=== PATIENT | female | born 1950 | race Caucasian/White ===

== ENCOUNTER 2018-01-30 15:49 | Inpatient (IN) | payer OTHER ==
[~2018-01-30] VITALS: Ht 161.5 cm; Wt 75.0 kg
--- NOTE | ~2018-01-30 | PR ---
[place], [place] PROGRESS NOTE NAME: NAVEEN GUTIERRES UNIT #: [id number] ROOM: 311 DOCTOR: TRISTIAN LOPEZ MD BIRTHDATE: [birth year] DOS: 02/03/2018 CHIEF COMPLAINT: "I am feeling a little better, I do not feel like I am part of the anymore." SUMMARY OF THE VISIT: The patient was interviewed as she lay on her bed. As I entered and approached her, she sat up and engaged readily in conversation. She reports what brought her into the hospital was that she was beginning to feel as if she was becoming an actual part of the . She states that these feelings have lessened in frequency and intensity and overall she is feeling like she is improved some from her admission. MENTAL STATUS: She is alert and oriented. Mood does still seem to be somewhat depressed. She is mainly psychotic and is questioning the validity of some of her thoughts. She tolerates her current medicines well and I see no sedation, extrapyramidal symptoms, tardive dyskinesia. Memory for the most part is intact. PLAN: Given the fact that she is already on 60 mg of Paxil, I will discontinue the Remeron due to ineffectiveness. Notes indicate that she was on 40 of Paxil and 15 of Remeron upon admission. Given the depressive symptomatology and the response to the increase in the Paxil, I believe we can safely discontinue Remeron. I will further increase Trilafon to 8 mg 3 times a day to further break the psychotic symptoms. Routine screening examinations upon admission show her to have a vitamin B12 level that is grossly low at 146. She has already been given a vitamin B12 injection. Her folate level also was low at 2.47 and she has been put on a B complex with C. We will continue to engage in individual and logan milieu activity, planning then to discharge to the least restrictive environment when stable. TRISTIAN LOPEZ MD CM:PNTRANS [id number] TRISTIAN LOPEZ MD 02/03/18 1011 interface
--- NOTE | ~2018-01-30 | PR ---
[place], [place] PROGRESS NOTE NAME: [id number] #: [id number] ROOM: 311 DOCTOR: BETSEY PALOMO MD BIRTHDATE: [birth year] DOS: 02/01/2018 SUBJECTIVE: The patient seen and I spoke with the staff. Per staff, the patient is withdrawn. No behavioral problems or issues, taken her medication regularly. The patient was pleasant and cooperative. She was in her bed. She said that she is not feeling that she is a part of the room anymore. She took her medication and did not have any side effect from the medication. MENTAL STATUS EXAMINATION: The patient was pleasant and cooperative. She described her mood as "okay." Affect, mood congruent. Thought process goal directed. No flight of ideas, loosening of association. She denied auditory or visual hallucinations. She still had some delusions, but much better than before. She denies any suicidal ideation, intent or plan. She also denied any homicidal ideation, intent or plan. PLAN: 1. Continue current medication and care. 2. Continue redirection. 3. Supportive care. BETSEY PALOMO MD CM:PNTRANS [id number] BETSEY PALOMO MD 02/01/18 4638 interface
--- NOTE | ~2018-01-30 | PR ---
[place], [place] PROGRESS NOTE NAME: NAVEEN GUTIERRES UNIT #: [id number] ROOM: 311 DOCTOR: TRISTIAN LOPEZ MD BIRTHDATE: [birth year] DOS: 02/04/2018 CHIEF COMPLAINT: "I think I am feeling a little better, thank you." SUMMARY OF THE VISIT: The patient was interviewed in the dining area. She was sitting watching television after having already eaten her breakfast. She engaged readily in conversation. She was engaging, conversation flowed pretty normally. She did report that she is feeling better compared to on admission and convincingly denied any medication side effects. No sedation, somnolence, extrapyramidal symptoms or tardive dyskinesia were noted. MENTAL STATUS: She remains alert and oriented. Mood is strongly trending towards euthymia. Affect is much more appropriate. There is no christiano or hypomania. There are no overt auditory or visual hallucinations, delusions or paranoia. Memory for the most part is intact. PLAN: I will maintain her current psychotropic regimen as she is achieving benefit without side effect. We will continue to support and monitor and engage in individual and logan milieu activity, returning home when stable. TRISTIAN LOPEZ MD CM:PNTRANS [id number] TRISTIAN LOPEZ MD 02/04/18 1005 interface
--- NOTE | ~2018-01-30 | DS ---
[place], [place] DISCHARGE SUMMARY NAME: [id number] UN[facility] #: [id number] ROOM: 311 DOCTOR: TRISTIAN LOPEZ MD BIRTHDATE: [birth year] DOS: 02/05/2018 CHIEF COMPLAINT: "I felt like I was becoming part of the room." HISTORY OF PRESENT ILLNESS: This is a 67-year-old white female with a long history of schizophrenia, who was brought into the Emergency Room at [facility] due to increased delusions and paranoia. Per the patient at that time, she believed that she was actually becoming a physical part of the room in which she was living at. She also believed that there were people who were watching her and following her. She states that despite being compliant with her medications, she has had an increase in the psychotic symptoms. The patient reports of the two medicines that she is taking, the Trilafon and the Rexulti, she believes that the Trilafon has been effective and does not understand what the Rexulti is doing it all. The patient was admitted to rule out any organic factors, to stabilize on medication, returning to the least restrictive environment when psychiatrically stable. PAST MEDICAL HISTORY: Remarkable for hypertension, COPD and hyperlipidemia. SUMMARY OF HOSPITAL COURSE: The patient was admitted to the hospital by Dr. Kelly, who felt that she no longer required the Rexulti and instead increased her Trilafon from 4 mg twice a day to 8 mg twice a day. The patient did tolerate this well, but continued to experience ongoing paranoia and delusions. He increased her Paxil from 40 mg a day to 60 mg a day, hoping to increase the effectiveness of the drug. When I had an opportunity to interview her, the patient continued to complain of both depression and paranoia and still felt that she was part of the physical room in which she was staying at. The patient convincingly denied any medication side effects at that time. I ended up increasing her Trilafon to 8 mg 3 times a day and discontinuing her Remeron, so that it would not interfere with the Paxil in anyway. After several days of this combination, the patient noted an alleviation of her symptomatology. She was sleeping well, eating well, interacting with other patients and staff well. She denied any suicidal thoughts, homicidal thoughts, any tardive dyskinesia, extrapyramidal symptoms, sedation or somnolence. The patient voiced a readiness and a willingness to return home at this time and was discharged with the hope to follow up at the [facility] as well. MENTAL STATUS AT DISCHARGE: The patient is alert and oriented. Mood does seem to be strongly trending towards euthymia, affect is much more appropriate. There is no christiano, hypomania or psychosis. Memory is fully intact. DIAGNOSIS: Schizoaffective disorder. PLAN: The patient is to return home. Her prescriptions have been e scribed to [facility] in [place]. She will have followup in the community and follow up at the [facility]: The patient psychiatrically was stable, medically was stable and psychosocially was ready to return home to her boyfriend who was anxious for her return home. She was discharged then on February 05 in stable condition. [place], [place] DISCHARGE SUMMARY NAME: NAVEEN GUTIERRES UNIT #: [id number] ROOM: [facility] DOCTOR: TRISTIAN LOPEZ MD BIRTHDATE: [birth year] TRISTIAN LOPEZ MD CM:AMARJIT TRISTIAN LOPEZ MD 02/05/18 0953 interface
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
--- NOTE | ~2018-01-30 | EKG ---
[place], [place] ELECTROCARDIOGRAM REPORT NAME: NAVEEN GUTIERRES UNIT #: [id number] ROOM: 311 DOCTOR: LANETTE LINTON,MARCE BIRTHDATE: [birth year] DOS: 02/01/2018 TIME: 1606 hours IMPRESSION: 1. Sinus rhythm. 2. Supraventricular ectopy. 3. Nonspecific ST-T changes. 4. Normal QT interval. MARCE GAMA MD CM:EKGRPT:ELECTROCARDIOGRAM REPORT 1151 1222 MARCE GAMA MD
--- NOTE | ~2018-01-30 | PR ---
[place], [place] PROGRESS NOTE NAME: [facility]ERRES [id number] UNIT #: [id number] ROOM: 311 DOCTOR: BETSEY PALOMO MD BIRTHDATE: [birth year] DOS: 02/02/2018 SUBJECTIVE: The patient seen and spoke with the staff. Per staff, her all cardiac tests were within normal limit, but the patient remains to be very isolated, stays in her room most of the time and still anxious. The patient was pleasant and cooperative. She was in her bed. She said that she is happy to know that all the tests are within normal limit and she do not have any problem with her heart. She took her medication and did not have any side effect. She said that she is feeling better, but still had some anxiety. MENTAL STATUS EXAMINATION: The patient was pleasant and cooperative. Described her mood as "okay". Affect, constricted. Thought process goal directed. No flight of ideas, loosening of association. She denied any auditory or visual hallucination. No delusion or paranoia noted. She denied suicidal ideation, intent or plan. She also denied any homicidal ideation, intent or plan. PLAN: 1. Increase Paxil to 60 mg in the morning. 2. Continue other medication. 3. Continue redirection. 4. Supportive care. BETSEY PALOMO MD CM:PNTRANS 39 [phone] BETSEY PALOMO MD 02/02/182143 interface
[~2018-01-30 15:49] MED LIST: ANAPROX DS550 MG PO; DARVOCET N 1001 TAB PO; DAYPRO600 M1 PO
[2018-01-30 15:56] VITALS: BP 155/107
[2018-01-30 16:19] LABS: BASO % 0.1 % (0.0-1.0); EOS % 0.1 % (1.0-4.0); HEMATOCRIT 37.2 % (37.0-47.0); HEMOGLOBIN 11.9 g/dl (12.0-16.0); LYMPH # 1.5 10*3/uL (1.3-4.4); LYMPH % 10.9 % (27.0-41.0); MEAN CELL VOLUME 93.9 fl (81.0-99.0); MEAN CORPUSCULAR HGB 30.1 pg (27.0-31.0); MEAN PLATELET VOLUME 9.9 fl (9.6-12.3); MONO # 1.2 10*3/uL (0.1-1.0); MONO % 8.6 % (3.0-9.0); NEUT # 10.8 10*3/uL (2.3-7.9); NEUT % 79.6 % (47.0-73.0); PLATELET COUNT AUTOMATED 336 10*3/uL (130-400); RED BLOOD COUNT 3.96 10*6/uL (4.10-5.10); RED CELL DISTRI WIDTH 16.4 % (0-14.5); WHITE BLOOD COUNT 13.5 10*3/uL (4.8-10.8)
[2018-01-30] MEDS ORDERED: ASPIRIN ADULT L81 M2 PO (16:24)
[2018-01-30] MEDS ORDERED: LISINOPRIL2.5 MG PO (16:26)
[2018-01-30] MEDS ORDERED: CARVEDILOL6.25 MG PO (16:27)
[2018-01-30] MEDS ORDERED: OMEPRAZOLE D/R20 MG PO (16:27)
[2018-01-30] MEDS ORDERED: ATORVASTATIN CA80 M1 PO (16:28)
[2018-01-30] MEDS ORDERED: CLOPIDOGREL75 MG PO (16:28)
[2018-01-30] MEDS ORDERED: MYRBETRIQ50 M1 PO (16:29)
[2018-01-30] MEDS ORDERED: PERPHENAZINE4 M1 PO (16:31)
[2018-01-30 16:32] LABS: ALBUMIN 3.2 gm/dl (3.1-4.5); ALKALINE PHOSPHATASE 96 U/L (45-117); BUN 13 mg/dl (7-24); CHLORIDE 95 mmol/L (98-107); CREATININE 0.56 mg/dL (0.55-1.02); POTASSIUM 3.7 mmol/L (3.5-5.1); SGOT/AST 9 IU/L (3-35); SGPT/ALT 29 U/L (12-78); SODIUM 139 mmol/L (136-145); TOTAL PROTEIN 6.5 gm/dL (6.4-8.2)
[2018-01-30] MEDS ORDERED: PERPHENAZINE8 MG PO (16:32)
[2018-01-30 16:34] LABS: ETHYL ALCOHOL < 3.0 mg/dl (<3)
[2018-01-30] MEDS ORDERED: ALPRAZOLAM0.25 M2 PO (16:35)
[2018-01-30] MEDS ORDERED: PROVENTIL HFA6.7 GM INH (16:55)
[2018-01-30] MEDS ORDERED: VITAMIN D5000 UNI1 PO (16:59)
[2018-01-30] MEDS ORDERED: REXULTI3 MG PO (16:59)
[2018-01-30] MEDS ORDERED: DUONEB 3 MG/3 ML3 M1 INH (17:05)
[2018-01-30 17:25] VITALS: BP 127/65
[2018-01-30] MEDS ORDERED: MIRTAZAPINE15 M2 PO (17:30)
[2018-01-30 17:52] LABS: BILIRUBIN NEGATIVE (NEGATIVE); BLOOD NEGATIVE (NEGATIVE); CLARITY SL CLOUDY (CLEAR); COLOR YELLOW (YELLOW); GLUCOSE NEGATIVE (NEGATIVE); KETONE NEGATIVE (NEGATIVE); LEUKO ESTERASE 1+ (NEGATIVE); NITRITE NEGATIVE (NEGATIVE); UROBILINOGEN 0.2 E.U./dl (0.2-1.0)
[2018-01-30 18:00] LABS: BACTERIA 1+; EPITHELIAL CELLS TNTC; RBC 0-2 rbc/hpf (0-2)
[2018-01-30 18:01] LABS: URINE AMPHETAMINES < 1000 (1000ng/ml); URINE BARBITURATES < 200 (200ng/ml); URINE BENZODIAZEPINES > 200 (200ng/ml); URINE CANNABINOIDS (THC) < 50 (50ng/ml); URINE COCAINE < 300 (300ng/ml); URINE METHADONE < 300 (300ng/ml); URINE OPIATES < 300 (300ng/ml)
[2018-01-30 18:02] LABS: URINE PHENCYCLIDINE < 25 (25ng/ml)
[2018-01-30 19:28] VITALS: BP 128/76
[2018-01-30] MEDS ORDERED: PAXIL40 M1 PO (20:38)
[2018-01-30 20:44] VITALS: BP 118/60
[2018-01-31 07:09] LABS: BUN 15 mg/dl (7-24); CHLORIDE 95 mmol/L (98-107); CHOLESTEROL 145 mg/dL (<200); CREATININE 0.49 mg/dL (0.55-1.02); POTASSIUM 3.4 mmol/L (3.5-5.1); SODIUM 142 mmol/L (136-145); TRIGLYCERIDES 127 mg/dl (<150); VLDL CHOLESTEROL 25 mg/dL (6-40)
[2018-01-31 07:21] LABS: HDL CHOLESTEROL 67 mg/dl (40-60); LDL CHOLESTEROL 53 mg/dL (9-159)
[2018-01-31 08:52] LABS: VITAMIN D, 25-HYDROXY 36.4 ng/mL (30-100)
[2018-01-31 09:24] VITALS: BP 126/77
[2018-01-31 20:07] VITALS: BP 114/64
[2018-02-01 08:01] VITALS: BP 144/64
[2018-02-01 20:00] VITALS: BP 136/70
[2018-02-02 08:02] VITALS: BP 138/64
[2018-02-02 20:09] VITALS: BP 129/64
[2018-02-03 08:18] VITALS: BP 131/72
[2018-02-03 20:08] VITALS: BP 106/62
[2018-02-04 07:26] LABS: BASO % 0.3 % (0.0-1.0); EOS # 0.1 10*3/uL (0.0-0.4); EOS % 1.3 % (1.0-4.0); HEMATOCRIT 32.7 % (37.0-47.0); HEMOGLOBIN 10.6 g/dl (12.0-16.0); LYMPH # 1.3 10*3/uL (1.3-4.4); LYMPH % 18.4 % (27.0-41.0); MEAN CELL VOLUME 94.2 fl (81.0-99.0); MEAN CORPUSCULAR HGB 30.5 pg (27.0-31.0); MEAN CORPUSCULAR HGB CONC 32.4 g/dl (33.0-37.0); MEAN PLATELET VOLUME 10.4 fl (9.6-12.3); NEUT # 4.5 10*3/uL (2.3-7.9); NEUT % 64.6 % (47.0-73.0); PLATELET COUNT AUTOMATED 210 10*3/uL (130-400); RED BLOOD COUNT 3.47 10*6/uL (4.10-5.10); RED CELL DISTRI WIDTH 16.1 % (0-14.5); WHITE BLOOD COUNT 6.9 10*3/uL (4.8-10.8)
[2018-02-04 07:56] LABS: BUN 14 mg/dl (7-24); CHLORIDE 101 mmol/L (98-107); CREATININE 0.57 mg/dL (0.55-1.02); POTASSIUM 3.5 mmol/L (3.5-5.1); SODIUM 139 mmol/L (136-145)
[2018-02-04 08:08] VITALS: BP 122/74
[2018-02-04 20:05] VITALS: BP 110/60
[2018-02-05 07:59] VITALS: BP 125/73
[2018-02-05] MEDS ORDERED: PAROXETINE HCL20 MG PO (09:34)
[2018-02-05] MEDS ORDERED: PERPHENAZINE4 M1 PO (09:34)
== END 2018-02-05 16:20 | disposition home or self-care (01) | DRG 885 ==
LOC: ED 15:49 → 3N 19:50
PROVIDERS: Nurse Practitioner Family; Psychiatry & Neurology Psychiatry; Registered Nurse
DX: F25.9 Schizoaffective disorder, unspecified (principal); E87.8 Other disorders of electrolyte and fluid balance, not elsewhere classified; Z99.81 Dependence on supplemental oxygen; N39.0 Urinary tract infection, site not specified; J44.9 Chronic obstructive pulmonary disease, unspecified; E78.5 Hyperlipidemia, unspecified; I10 Essential (primary) hypertension; F41.9 Anxiety disorder, unspecified; I25.10 Atherosclerotic heart disease of native coronary artery without angina pectoris; F32.9 Major depressive disorder, single episode, unspecified; F17.200 Nicotine dependence, unspecified, uncomplicated; D64.9 Anemia, unspecified; E87.6 Hypokalemia; R73.03 Prediabetes; E53.8 Deficiency of other specified B group vitamins; K21.9 Gastro-esophageal reflux disease without esophagitis; R07.9 Chest pain, unspecified; Z71.6 Tobacco abuse counseling; Z88.8 Allergy status to other drugs, medicaments and biological substances; Z79.82 Long term (current) use of aspirin; Z79.899 Other long term (current) drug therapy; I25.2 Old myocardial infarction; Z95.5 Presence of coronary angioplasty implant and graft; Z82.49 Family history of ischemic heart disease and other diseases of the circulatory system; Z88.6 Allergy status to analgesic agent; Z88.1 Allergy status to other antibiotic agents

== ENCOUNTER 2019-09-13 19:52 | Emergency (ER) | payer OTHER ==
[~2019-09-13] VITALS: Ht 162.5 cm; Wt 77.1 kg
[~2019-09-13 19:52] MED LIST changes: +ALPRAZOLAM0.25 M2 PO; +ASPIRIN ADULT L81 M2 PO; +ATORVASTATIN CA80 M1 PO; +CARVEDILOL6.25 MG PO; +CLOPIDOGREL75 MG PO; +DUONEB 3 MG/3 ML3 M1 INH; +LISINOPRIL2.5 MG PO; +MIRTAZAPINE15 M2 PO; +MYRBETRIQ50 M1 PO; +OMEPRAZOLE D/R20 MG PO; +PAROXETINE HCL20 MG PO; +PAXIL40 M1 PO; +PERPHENAZINE4 M1 PO; +PERPHENAZINE8 MG PO; +PROVENTIL HFA6.7 GM INH; +REXULTI3 MG PO; +VITAMIN D5000 UNI1 PO
[2019-09-13 20:30] LABS: BASO % 0.3 % (0.0-1.0); EOS # 0.1 10*3/uL (0.0-0.4); EOS % 1.9 % (1.0-4.0); HEMATOCRIT 30.6 % (37.0-47.0); HEMOGLOBIN 9.7 g/dl (12.0-16.0); LYMPH # 1.6 10*3/uL (1.3-4.4); LYMPH % 22.6 % (27.0-41.0); MEAN CELL VOLUME 87.7 fl (81.0-99.0); MEAN CORPUSCULAR HGB 27.8 pg (27.0-31.0); MEAN CORPUSCULAR HGB CONC 31.7 g/dl (33.0-37.0); MEAN PLATELET VOLUME 9.8 fl (9.6-12.3); MONO % 13.1 % (3.0-9.0); NEUT # 4.5 10*3/uL (2.3-7.9); PLATELET COUNT AUTOMATED 221 10*3/uL (130-400); RED BLOOD COUNT 3.49 10*6/uL (4.10-5.10); RED CELL DISTRI WIDTH 12.8 % (0-14.5); WHITE BLOOD COUNT 7.3 10*3/uL (4.8-10.8)
[2019-09-13 20:43] LABS: ALBUMIN 3.1 gm/dl (3.1-4.5); ALKALINE PHOSPHATASE 124 U/L (45-117); BUN 4 mg/dl (7-24); CHLORIDE 99 mmol/L (98-107); CREATININE 0.87 mg/dL (0.55-1.02); POTASSIUM 3.4 mmol/L (3.5-5.1); SGOT/AST 6 IU/L (3-35); SGPT/ALT 13 U/L (12-78); SODIUM 139 mmol/L (136-145); TOTAL PROTEIN 6.2 gm/dL (6.4-8.2)
[2019-09-13 20:44] LABS: ACETAMINOPHEN (TYLENOL) < 5.0 ug/ml (10-30); ETHYL ALCOHOL < 3.0 mg/dl (<3)
[2019-09-13 21:38] LABS: BILIRUBIN NEGATIVE (NEGATIVE); BLOOD NEGATIVE (NEGATIVE); CLARITY CLEAR (CLEAR); COLOR YELLOW (YELLOW); GLUCOSE NEGATIVE (NEGATIVE); KETONE NEGATIVE (NEGATIVE); LEUKO ESTERASE NEGATIVE (NEGATIVE); NITRITE NEGATIVE (NEGATIVE); SPECIFIC GRAVITY <= 1.005 (1.005-1.030); UROBILINOGEN 0.2 E.U./dl (0.2-1.0)
[2019-09-13 21:44] LABS: BACTERIA TRACE; EPITHELIAL CELLS 51-100; WBC 0-2 wbc/hpf (0-5)
[2019-09-13] MEDS ORDERED: REXULTI2 MG PO (21:44)
[2019-09-13] MEDS ORDERED: DOXEPIN HCL10 MG PO (21:45)
[2019-09-13 21:46] LABS: URINE AMPHETAMINES < 1000 (1000ng/ml); URINE BARBITURATES < 200 (200ng/ml); URINE BENZODIAZEPINES < 200 (200ng/ml); URINE CANNABINOIDS (THC) < 50 (50ng/ml); URINE COCAINE < 300 (300ng/ml); URINE METHADONE < 300 (300ng/ml); URINE OPIATES < 300 (300ng/ml)
[2019-09-13] MEDS ORDERED: PROBIOTIC1 EAC1 PO (21:46)
[2019-09-13 21:53] LABS: URINE PHENCYCLIDINE < 25 (25ng/ml)
[2019-09-16] MEDS ORDERED: PAROXETINE40 MG PO (15:08)
== END 2019-09-13 23:50 | disposition short-term general hospital (02) ==
LOC: ED 19:52
PROVIDERS: Emergency Medicine
DX: T50.902A Poisoning by unspecified drugs, medicaments and biological substances, intentional self-harm, initial encounter (principal); R45.851 Suicidal ideations; F20.9 Schizophrenia, unspecified; J44.9 Chronic obstructive pulmonary disease, unspecified; I25.10 Atherosclerotic heart disease of native coronary artery without angina pectoris; K21.9 Gastro-esophageal reflux disease without esophagitis; I25.2 Old myocardial infarction; E78.5 Hyperlipidemia, unspecified; F17.200 Nicotine dependence, unspecified, uncomplicated; Z88.6 Allergy status to analgesic agent; Z88.8 Allergy status to other drugs, medicaments and biological substances; Z88.1 Allergy status to other antibiotic agents; Z88.2 Allergy status to sulfonamides; Z79.899 Other long term (current) drug therapy; Z79.82 Long term (current) use of aspirin; Y92.89 Other specified places as the place of occurrence of the external cause

== ENCOUNTER 2019-09-16 15:08 | Inpatient (IN) | payer OTHER ==
[~2019-09-16] VITALS: Ht 162.5 cm; Wt 85.6 kg
[~2019-09-16 15:08] MED LIST changes: +DOXEPIN HCL10 MG PO; +PAROXETINE40 MG PO; +PROBIOTIC1 EAC1 PO; +REXULTI2 MG PO
[2019-09-16] MEDS ORDERED: ZESTRIL2.5 MG PO (15:09)
[2019-09-16] MEDS ORDERED: PERPHENAZINE8 MG PO (15:10)
[2019-09-16] MEDS ORDERED: ANORO ELLIPTA1 EACH INH (15:11)
--- NOTE | 2019-09-18 19:00 | NUR ---
NAVEEN GUTIERRES a 69 year old F admitted via wheel chair from the OTHER as a voluntary admission. Arrived on unit at 1900. ALLERGIES: NORCO,SYMBICORT,INVEGA,CEFDINIR,BREO ELLIPTA,BACTRIM. Vital signs are: 98.8-79-17 132/69. The client signed the following forms with stated understanding: Authorization For The Release of Medical Information, Clothing List, Consent to Voluntary Admission and Hospitalization, Consent and Release Forms/Receipt of Rights, Acknowledgement of Advance Directive Information, Behavioral Health Consent Form, and Informed Consent of Medications. Admitted under the services of Dr. JOHN LINTON,[facility]. A search was conducted and hazardous articles were removed. Client was oriented to the unit. Patient refused skin assessment at this time. VALENCIA DIANA A
--- NOTE | 2019-09-18 19:35 | NUR ---
KUMAR CROSS CALLED TO REVIEW SUICIDE RISK SCORE AND FOR CLARIFICATION FOR LEVEL OF OBSERVATION
--- NOTE | 2019-09-18 19:40 | NUR ---
OUTSIDE MACHINIST APPRENTICE, DEIRDRE TOVAR NOTIFIED ABOUT ADMISSION. PATIENT SUICIDE RISK SCORE ELEVATED AND WAITING CALL BACK FROM KUMAR CROSS TO CLARIFY LEVEL OF OBSERVATION. OUTSIDE MACHINIST APPRENTICE AWARE
[2019-09-18 19:46] VITALS: BP 132/69
--- NOTE | 2019-09-18 19:50 | NUR ---
DR CHOWDARY UPADATED ABOUT PATIENT ADMISSION ON PHONE NUMBER [phone]. PATIENT UNDER DR BARRERA FOR MEDICAL MANAGEMENT
[2019-09-18 19:53] VITALS: BP 132/69
--- NOTE | 2019-09-18 20:05 | NUR ---
NURSING PRODUCTION DEPARTMENT SUPERVISOR UPDATED ABOUT PATIENT ADMISSION
[2019-09-18 20:28] VITALS: BP 132/59
--- NOTE | 2019-09-18 20:52 | NUR ---
KUMAR CROSS RETURNED CALL TO MAKE PATIENT LEVEL OF OBSERVATION 1:1 UNTIL FURTHER EVALUATION IN THE AM. NURSING CORONER FORENSIC TECHNICIAN TO BE UPDATED
--- NOTE | 2019-09-18 21:06 | NUR ---
NURSING PATIENT SERVICE REPRESENTATIVE UPDATED ABOUT LEVEL OF OBSERVATION AND PATIENT ROOM CHANGE
--- NOTE | 2019-09-18 22:05 | NUR ---
Dr. Hope here and saw patient. Awaiting new orders.
--- NOTE | 2019-09-19 00:35 | NUR ---
24 HR chart check completed.
[2019-09-19 07:10] VITALS: BP 129/62
[2019-09-19 07:44] LABS: BASO % 0.3 % (0.0-1.0); EOS # 0.2 10*3/uL (0.0-0.4); EOS % 3.2 % (1.0-4.0); HEMATOCRIT 31.5 % (37.0-47.0); HEMOGLOBIN 9.9 g/dl (12.0-16.0); LYMPH # 1.3 10*3/uL (1.3-4.4); LYMPH % 19.2 % (27.0-41.0); MEAN CELL VOLUME 87.5 fl (81.0-99.0); MEAN CORPUSCULAR HGB 27.5 pg (27.0-31.0); MEAN CORPUSCULAR HGB CONC 31.4 g/dl (33.0-37.0); MEAN PLATELET VOLUME 11.1 fl (9.6-12.3); MONO # 0.9 10*3/uL (0.1-1.0); MONO % 13.3 % (3.0-9.0); NEUT # 4.4 10*3/uL (2.3-7.9); NEUT % 63.7 % (47.0-73.0); PLATELET COUNT AUTOMATED 252 10*3/uL (130-400); RED CELL DISTRI WIDTH 13.2 % (0-14.5); WHITE BLOOD COUNT 6.8 10*3/uL (4.8-10.8)
[2019-09-19 08:16] LABS: ALBUMIN 3.2 gm/dl (3.1-4.5); BUN 12 mg/dl (7-24); CHLORIDE 101 mmol/L (98-107); CHOLESTEROL 146 mg/dL (<200); POTASSIUM 3.8 mmol/L (3.5-5.1); SGOT/AST 11 IU/L (3-35); SGPT/ALT 18 U/L (12-78); SODIUM 139 mmol/L (136-145); TOTAL PROTEIN 6.6 gm/dL (6.4-8.2); TRIGLYCERIDES 77 mg/dl (<150); VLDL CHOLESTEROL 15 mg/dL (6-40)
[2019-09-19 08:25] LABS: ALKALINE PHOSPHATASE 115 U/L (45-117); HDL CHOLESTEROL 58 mg/dl (40-60); LDL CHOLESTEROL 73 mg/dL (9-159)
[2019-09-19 08:46] LABS: VITAMIN D, 25-HYDROXY 64.6 ng/mL (30-100)
--- NOTE | 2019-09-19 11:59 | NUR ---
Patient resting quietly with no c/o discomfort. Respirations easy and regular. Vital signs stable. No overt distress. GIVENS,TAYLOR
--- NOTE | 2019-09-19 12:03 | NUR ---
AM GROUP PT ATTENDED AND PARTICIPATED IN GROUP. PT PLEASANT AND ON TASK WITH NO CONFUSION OR S.I. EXPRESSED AT THIS TIME. PT WILL CONTINUE TO ATTEND AND PARTICIPATE IN FUTURE GROUP SESSIONS.
--- NOTE | 2019-09-19 12:17 | NUR ---
psychosocial hx completed this date.
--- NOTE | 2019-09-19 14:08 | NUR ---
P: PASSIVE WISH. PT STATES SHE DOESNT WANT TO LIVE LIKE THIS ANYMORE, HOWEVER SHE WONT TRY ANYTHING HERE BECAUSE SHE FEELS SAFE. I: ENCOURAGE MEDICATION COMPLIANCE, PROVIDE 1:1 FOR THERAPEUTIC COMMUNICATION. REORIENT PT NEEDED. MONITORED PT BEHAVIORS WITH Q15 MINUTE SAFETY CHECKS. ENCOURAGED PT TO ATTEND AND PARTICIPATE IN GROUP. VERBALLY CONTRACTED FOR SAFETY. EXPLAINED TO PT SHE NEEDS TO SEEK HELP WHEN HAVING SUICIDAL/ THOUGHTS. R: PT REMAINS CONFUSED, MEDICATION COMPLIANT, PT ATTENDED GROUP AND WAS WITHDRAWN TO SELF. PT CONTINUES TO HAVE A PASSIVE WISH. P: CONTINUE WITH 1:1 FOR THERAPEUTIC COMMUNICATION, REORIENT NEEDED, ENCOURAGE MEDICATION COMPLIANCE, MONITOR BEHAVIORS WITH Q15 MINUTE SAFETY CHECKS. ENCOURAGE ATTENDANCE AND PARTICIPATION IN GROUPS AND ACTIVITIES CONTINUE TO MONITOR FOR SUICIDAL IDEATIONS OR PASSIVE WISHES. SEE [facility] FLOWSHEET FOR SPECIFIC MONITORING.
--- NOTE | 2019-09-19 14:17 | NUR ---
PT CONTINUES TO REFUSE SKIN ASSESSMENT.
--- NOTE | 2019-09-19 15:49 | NUR ---
PM GROUP/ART PT ATTENDED AND PARTICIPATED IN GROUP. PT PLEASANT AND ON TASK WITH NO CONFUSION OR HALLUCINATIONS EXPRESSED AT THIS TIME. PT WILL CONTINUE TO ATTEND AND PARTICIPATE IN FUTURE GROUP SESSIONS.
[2019-09-19 19:43] VITALS: BP 116/58
--- NOTE | 2019-09-19 21:24 | NUR ---
Patient alert and oriented x3. Patient denies having hallucinations at this time. No signs of any responding to internal stimuli. Patient states that she is still having suicidal thoughts but that she states " I won't do anything because I don't want to continue to have these thoughts and I feel this place is going to help me cope better,at least that is what the social media marketing analyst in [place] told me that this place could help me." "I do feel safe here". Patient compliant with medications without any difficulty.Patient isolative to room except for meals and snacks.Patient continues to refuse skin assessment. Patient told to contract for safety. Provided 1:1 for emotional support. Plan to continue to encourage medication compliance and continue to provide emotional support. Also continue to tell patient to contract for safety and encourage patient to be more interactive with staff and other patients. Q 15 minute safety checks continued and maintained. See [facility] flowsheet for further documentation.
--- NOTE | 2019-09-20 00:12 | NUR ---
24 HR chart check completed.
--- NOTE | 2019-09-20 05:44 | NUR ---
Patient slept approx. 6 1/2hours throughout shift with one awakening. Q 15 minute safety checks continued and maintained.
[2019-09-20 08:00] VITALS: BP 135/68
[2019-09-20 15:25] LABS: BILIRUBIN NEGATIVE (NEGATIVE); BLOOD NEGATIVE (NEGATIVE); CLARITY CLEAR (CLEAR); COLOR YELLOW (YELLOW); GLUCOSE NEGATIVE (NEGATIVE); KETONE NEGATIVE (NEGATIVE); LEUKO ESTERASE NEGATIVE (NEGATIVE); NITRITE NEGATIVE (NEGATIVE); SPECIFIC GRAVITY 1.015 (1.005-1.030); UROBILINOGEN 0.2 E.U./dl (0.2-1.0)
[2019-09-20 15:38] LABS: BACTERIA TRACE; EPITHELIAL CELLS 31-40; WBC 0-2 wbc/hpf (0-5)
--- NOTE | 2019-09-20 17:36 | NUR ---
Pt denies depressed mood today. Continues to be withdrawn to self. Suicide risk reassessed. Encouraged to interact with staff and peers. Pt denies suicidal ideation, intent or plan. Pt states "no, i'm not too depressed today. God is good". Pt did not interact with peers, was somewhat interactive with staff. Will continue to assess for suicidal thought process and encourage pt to verbalize any negative thoughts as they occur. Will continue to encourage pt to participate in group for socialization and support. Q15 min monitoring per policy.
[2019-09-20 20:06] VITALS: BP 134/64
--- NOTE | 2019-09-20 21:30 | NUR ---
Patient alert and oriented x3. Patient denies having hallucinations at this time. No signs of any responding to internal stimuli. Patient states that she is still having suicidal thoughts but not as much as before she came here. Patient states "I do feel safe here". Patient compliant with medications without any difficulty.Patient isolative to room except for meals and snacks.Patient continues to refuse skin assessment. Patient told to contract for safety. Provided 1:1 for emotional support. Plan to continue to encourage medication compliance and continue to provide emotional support. Also continue to tell patient to contract for safety and encourage patient to be more interactive with staff and other patients. Q 15 minute safety checks continued and maintained. See [facility] flowsheet for further documentation.
--- NOTE | 2019-09-21 00:21 | NUR ---
24 HR chart check completed.
--- NOTE | 2019-09-21 05:35 | NUR ---
Patient slept approx. 6 hours throughout shift. Q 15 minute safety checks continued and maintained.
[2019-09-21 07:45] VITALS: BP 141/60
--- NOTE | 2019-09-21 08:09 | NUR ---
Patient resting quietly with no c/o discomfort. Respirations easy and regular. Vital signs stable. No overt distress. CASSY BEAL
--- NOTE | 2019-09-21 08:15 | NUR ---
Treatment Plan meeting with Dr. Workman, RN, AT, SW and Healthcare Account Manager. Plan for discharge at the end of next week. Pt. will return home at discharge.
--- NOTE | 2019-09-21 08:30 | NUR ---
CALLED 2046, MADE "LISBETH" AWARE OF CONSULT FOR DR. PALOMO. STATES SHE WILL LET HER KNOW.
--- NOTE | 2019-09-21 11:39 | NUR ---
AM GROUP/CURRENT EVENTS AND LIGHT THERAPY PT ATTENDED AND PARTICIPATED IN ALL GROUP ACTIVITIES. PT EXPRESSED NO SUCIDAL IDEATIONS WHILE IN GROUP AND WAS OPEN TO DISCUSSING THE STRESSORS THAT LED TO HER HOSPITALIZATION.
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
--- NOTE | 2019-09-21 13:17 | NUR ---
The patient has no complaints and is resting comfortably. CASSY BEAL
--- NOTE | 2019-09-21 13:39 | NUR ---
PHYSICAL THERAPY Physical therapy screen performed. Patient is independent with all ADLs and ambulation without AD. Nursing and aid have no concerns, "she is walky talky." Pt has no PT needs at this time. Thank you Shaniqua Morrow, PT, DPT
--- NOTE | 2019-09-21 13:40 | NUR ---
Occupational Therapy referral received and screen completed. Per both nurse and mileu, patient is independent in ADls, mobility and no therapy concerns voiced by staff. Discharge OT referral. No further OT indicated. Manju Ordaz OTR/L
--- NOTE | 2019-09-21 15:22 | NUR ---
IP 6 days jenni per Pati at [facility], NRD 09/22. Ref # [id number]
--- NOTE | 2019-09-21 15:38 | NUR ---
PM GROUP PT ATTENDED AND PARTICIPATED IN ALL GROUP ACTIVITIES. PT EXPRESSED NO SUICIDAL IDEATIONS WHILE IN GROUP. PT WAS TALKATIVE AND ON TASK.
[2019-09-21 19:31] VITALS: BP 139/67
--- NOTE | 2019-09-21 20:34 | NUR ---
EVENING GROUP/MOVIE AND POPCORN! PT ATTENDED [facility] THROUGH GROUP AND PARTICIPATED. PT PLEASANT WITH NO S.I EXPRESSED AT THIS TIME. PT WILL CONTINUE TO ATTEND AND PARTICIPATE IN FUTURE GROUP SESSIONS.
--- NOTE | 2019-09-21 21:20 | NUR ---
Patient alert and oriented x3. Patient denies having hallucinations at this time. No signs of any responding to internal stimuli. Patient denies having suicidal thoughts at this time. Patient compliant with medications without any difficulty. Patient isolative to room except for meals and snacks. Patient continues to refuse skin assessment. Patient told to contract for safety. Provided 1:1 for emotional support. Plan to continue to encourage medication compliance and continue to provide emotional support. Also continue to tell patient to contract for safety and encourage patient to be more interactive with staff and other patients. Q 15 minute safety checks continued and maintained. See [facility] flowsheet for further documentation.
--- NOTE | 2019-09-22 00:23 | NUR ---
24 HR chart check completed.
--- NOTE | 2019-09-22 00:29 | NUR ---
Patient restless,walking around in room. Was out to diningroom around 2230 and watched TV until 2300. Took some magazines to room to read and then came to nurses' desk and requested for sleeping pill. Patient states " I am so tired but my mind won't rest." Attempted to have patient do some relaxation techniques but was unsuccessful. All other non-pharmacological interventions unsuccessful.
--- NOTE | 2019-09-22 00:30 | NUR ---
Medicated with Ativan po prn for anxiety. Will continue to monitor behavior.
--- NOTE | 2019-09-22 01:15 | NUR ---
Patient resting quietly in bed with eyes closed and snoring sounds heard. Ativan effective. Will continue to monitor behavior.
--- NOTE | 2019-09-22 05:09 | NUR ---
Patient slept approx. 5 hours throughout shift with a few awakenings. Q 15 minute safety checks continued and maintained.
[2019-09-22 07:39] VITALS: BP 121/67
--- NOTE | 2019-09-22 08:00 | NUR ---
Treatment Plan meeting with Dr. Workman, RN, AT, SW and Production Crew Supervisor. Plan for discharge at the end of the week, beginning of next week. Pt. will go home at discharge.
--- NOTE | 2019-09-22 11:20 | NUR ---
Shift chart check completed.
--- NOTE | 2019-09-22 11:23 | NUR ---
NO ADVERSE MOODS OR BEHAVIORS NOTED THIS SHIFT. ALERT AND ORIENTED X3. MOOD PLEASANT AND SLIGHTLY EUPHORIC AT TIMES. DENIES SI/HI, INTENT OR PLAN, HALLUCINATIONS, OR PAIN. NO S/S OF INTERACTING WITH INTERNAL STIMULI. NO DELUSIONAL THOUGHT PROCESS NOTED. NO S/S OF DISTRESS NOTED. RESPS EVEN AND UNLABORED ON 5L O2 NC. MEDICATION COMPLIANT WITH EDUCATION PROVIDED ON EACH. PT STATES THAT AT TIMES SHE FEELS SLIGHTLY ANXIOUS, UTILIZING COPING SKILLS AND VERBALLY STATES ANXIETY RELIEF WITH UTILIZING COPING TECHNIQUES. GAIT STEADY WHILE AMBULATING. MAKES NEEDS KNOWN. EATING AND DRINKING ADEQUATELY. ATTENDING/PARTICIPATE IN GROUP THERAPIES FOR EMOTIONAL SUPPORT AND VENTILATION OF FEELINGS. 1:1 EFFEECTIVE. Q15 MINUTE CHECKS MAINTAINED FOR SAFETY.
--- NOTE | 2019-09-22 11:43 | NUR ---
AM GROUP/LIGHT AND COLOR THERAPY PT ATTENDED AND PARTICIPATED IN ALL GROUP ACTIVITIES. PT EXPRESSED NO SUICIDAL IDEATIONS WHILE IN GROUP. PT EXHIBITED NO ANXIETY, WAS TALKATIVE AND JOKING WITH PEERS AND STAFF
--- NOTE | 2019-09-22 11:59 | NUR ---
Patient participated in group discussion about self-affirmations. Completed group activity of "I Like Myself from A to Z." Patient interacted well with peers and staff during this time.
--- NOTE | 2019-09-22 15:13 | NUR ---
Shift chart check completed.
--- NOTE | 2019-09-22 15:41 | NUR ---
PM GROUP/CRAFTS PT ATTENDED AND PARTICIPATED IN ALL AFTERNOON GROUP THERAPY. PT EXPRESSED NO SUICIDAL IDEATIONS WHILE IN GROUP. PT WAS QUIET AND ON TASK
[2019-09-22 19:56] VITALS: BP 118/68
--- NOTE | 2019-09-22 20:42 | NUR ---
EVENING GROUP/BINGO! PT ATTENDED AND PARTICIPATED IN GROUP. PT PLEASANT AND ON TASK WITH NO S.I. EXPRESSED AT THIS TIME. PT WILL CONTINUE TO ATTEND AND PARTICIPATE IN FUTURE GROUP SESSIONS.
--- NOTE | 2019-09-23 03:19 | NUR ---
PATIENT ALERT AND ORIENTED X4. NO ADVERSE BEHAVIORS NOTED. PT MEDICATION COMPLIANT WITHOUT DIFFICULTY AFTER REVIEW. NO PHYSICAL COMPLAINTS VOICED. PT ON 3L NC CONTINOUS, SPO2 97, RESPIRATIONS EASY AND REGULAR. PT CURRENTLY LAYING DOWN WITH EYES CLOSED. NO SIGNS OR SYMPTOMS OF DISTRESS NOTED. PLAN IS TO CONTINUE TO MONITOR MOOD AND BEHAVIORS. PROVIDE 1:1 WITH EMOTIONAL SUPPORT NEEDED. ENCOURAGE MEDICATION COMPLIANCE AND EDUCATE. MAINTAIN Q 15 MIN CHECKS. CHECK [facility] FLOWSHEET FOR SPECIFIC MONITORING.
--- NOTE | 2019-09-23 04:37 | NUR ---
24 HOUR CHART CHECK COMPLETED.
--- NOTE | 2019-09-23 05:45 | NUR ---
PATIENT OBSERVED ON Q 15 MIN CHECKS TO HAVE SLEPT APPROX 7 HOURS WITH X4 BRIEF AWAKENINGS TO USE THE RESTROOM. PT APPROACHED NURSES STATION THIS AM AND STATED "I SLEPT SO GOOD LAST NIGHT, PLUS I HAD A SHOWER THIS AM, I FEEL WONDERFUL". NO SIGNS OR SYMPTOMS OF DISTRESS NOTED.
[2019-09-23 07:58] VITALS: BP 131/63
--- NOTE | 2019-09-23 08:15 | NUR ---
Treatment Plan meeting with Dr. Workman, RN, AT, SW and Technical Sales Manager. Plan for discharge at the end of the week, beginning of next week. Pt. will return home at discharge.
--- NOTE | 2019-09-23 08:30 | NUR ---
Patient eating breakfast with no c/o discomfort. Respirations easy and regular. Vital signs stable. No overt distress. CASSY BEAL
--- NOTE | 2019-09-23 10:48 | NUR ---
PT STATES SHE FEELS GOOD AND SLEPT GREAT; HOWEVER, STILL STATES THAT SHE IS MILDLY ANXIOUS. PT PROVIDED WITH 1:1 FOR EMOTIONAL SUPPORT AND ENCOURAGED TO VERBALIZE FEELINGS OF ANXIOUSNESS. PT STATES THAT SHE IS NOT DEPRESSED, STATES SHE FEELS PRETTY GOOD. PT STATES SHE DOES FEEL "A LITTLE BIT ANXIOUS, BUT THAT IS NORMAL FOR ME". PT STATES THERE IS NO TRIGGERING EVENT, IT IS JUST AN INTERNAL FEELING. PT AGREEABLE TO PARTICIPATING IN GROUP THERAPY FOR SUPPORT AND SOCIALIZATION. WILL CONTINUE TO PROVIDE PATIENT WITH EMOTIONAL SUPPORT. WILL CONTINUE TO ENCOURAGE PT TO VERBALIZE ANY NEGATIVE THOUGHT PROCESSES THEY OCCUR. WILL CONTINUE TO ENCOURAGE PARTICIPATION IN GROUP THERAPY/ACTIVITY. Q15 MIN MONITORING PER DR. LOPEZ.
--- NOTE | 2019-09-23 11:37 | NUR ---
AM GROUP/ENNEAGRAM PT ATTENDED AND PARTICIPATED IN ALL GROUP ACTIVITIES. PT EXPRESSED NO SUICIDAL IDEATIONS WHILE IN GROUP. PT WAS ON TASK AND WAS GOOD HUMORED.
--- NOTE | 2019-09-23 15:44 | NUR ---
PM GROUP/MUSIC AND CRAFTS PT ATTENDED AND PARTICIPATED IN ALL GROUP ACTIVITIES. PT EXPRESSED NO SUICIDAL IDEATIONS WHILE IN GROUP. PT WAS TALKATIVE BUT ON TASK.
--- NOTE | 2019-09-23 18:02 | NUR ---
Shift chart check completed.
[2019-09-23 19:19] VITALS: BP 132/60
--- NOTE | 2019-09-23 23:20 | NUR ---
PATIENT ALERT AND ORIENTED X4. MOOD STABLE. PT CALM, COOPERATIVE, AND INTERACTIVE. PT STATED DURING 1:1 "IM DOING REALLY GOOD HONEY". PT DENIES SI/HI AND HALLUCINATIONS, NO NOTED RESPONDING TO INTERNAL STIMULI. MEDICATION COMPLIANT WITHOUT DIFFICULTY, EDUCATION PROVIDED. PT AMBULATORY, GAIT STEADY. ABLE TO MAKE NEEDS KNOWN. ATE 100% OF HS SNACK. NO PHYSICAL COMPLAINTS VOICED. PT CURRENTLY LAYING DOWN WITH EYES CLOSED. RESPIRATIONS EASY AND REGULAR ON 3L NC. NO SIGNS OR SYMPTOMS OF DISTRESS NOTED. PLAN IS TO CONTINUE TO MONITOR MOOD AND BEHAVIORS. PROVIDE 1:1 WITH EMOTIONAL SUPPORT NEEDED. ENCOURAGE MEDICATION COMPLIANCE AND EDUCATE. MAINTAIN Q 15 MIN CHECKS.
--- NOTE | 2019-09-24 02:50 | NUR ---
24 HOUR CHART CHECK COMPLETED.
--- NOTE | 2019-09-24 03:55 | NUR ---
RESIDENT CALLED AT [phone], SPOKE TO , UPDATED THAT PATIENT JUST CAME UP TO THE NURSES STATION WITH A COMPLAINT OF KNEE PAIN AND DOESN'T HAVE ANYTHING AVAILABLE IN [facility] AT THIS TIME DUE TO ALLERGIES LISTED. STATED HE WILL PUT IN A ORDER FOR IBUPROFEN. NO OTHER ORDERS RECEIVED.
--- NOTE | 2019-09-24 04:03 | NUR ---
PATIENT RECEIVED PRN MOTRIN 600MG PO ORDERED AT THIS TIME FOR C/O RIGHT KNEE PATIENT WITH A RATING OF 5/10. NO OTHER PHYSICAL COMPLAINTS NOTED. WILL CONTINUE TO MONITOR FOR EFFECTIVENESS.
--- NOTE | 2019-09-24 05:05 | NUR ---
PATIENT AWAKE IN DINING ROOM WATCHING TV AT THIS TIME, PT STATED THE PRN MOTRIN SHE RECEIVED AT 0403 IS EFFECTIVE AND HER PAIN RATING IS NOW A 2/10.
--- NOTE | 2019-09-24 06:06 | NUR ---
PATIENT SLEPT APPROX 4 HOURS THIS SHIFT UNINTERRUPTED. NO SIGNS OR SYMPTOMS OF DISTRESS NOTED.
[2019-09-24 08:17] VITALS: BP 131/64
--- NOTE | 2019-09-24 09:07 | NUR ---
IP 3 additional days jenni per Pati at [facility], NRD 09/26. Ref # [id number]
--- NOTE | 2019-09-24 09:30 | NUR ---
Treatment Plan meeting with Dr. Workman, RN, AT, SW and Cold Roll Inspector. Plan for discharge Saturday. Pt. will return home.
--- NOTE | 2019-09-24 11:42 | NUR ---
AM GROUP/WORD FIND PT ATTENDED AND PARTICIPATED IN ALL GROUP ACTIVITIES. PT EXPRESSED NO SUICIDAL IDEATIONS WHILE IN GROUP. PT WAS QUIET AND ON TASK
--- NOTE | 2019-09-24 15:06 | NUR ---
P: PT ISOLATIVE TO SELF AT TIMES THROUGHOUT THE DAY. PT MOOD IS DEPRESSED. I: ENCOURAGE GROUP PARTICIPATION AND SOCIALIZATION, PROVIDE EMOTIONAL SUPPORT AND 1:1 FOR PT TO VOICE FEELINGS R: PT ALERT TO PERSON, PLACE AND TIME. PT MED COMPLIANT WITHOUT DIFFICULTY, MED EDUCATION PROVIDED. PT PARTICIPATING IN GROUP ACTIVITES WITHOUT ENCOURAGEMENT. PT AMBULATORY THROUGHOUT UNIT, GAIT STEADY. PT CONTINENT OF BOWEL AND BLADDER. P: PROVIDE EMOTIONAL SUPPORT AND 1:1 FOR PT TO VOICE FEELINGS, ENCOURAGE MED COMPLIANCE AND PROVIDE MED EDUCATION, ENCOURAGE GROUP PARTICIPATION AND SOCIALIZATION, MONITOR PT BEHAVIORS ON Q15 MIN SAFETY CHECKS.
--- NOTE | 2019-09-24 15:44 | NUR ---
PM GROUP/OWLS PT ATTENDED AND PARTICIPATED IN ALL GROUP ACTIVITIES. PT WAS QUIET AND WAS OBSERVED TO BE LOOKING OUT THE WINDOW. PT EXPRESSED NO SUICIDAL IDEATIONS AND STATED, "IT'S JUST SO BEAUTIFUL OUT, I LOVE LOOKING AT [place]"
[2019-09-24 19:35] VITALS: BP 125/65
--- NOTE | 2019-09-24 22:45 | NUR ---
24 HR chart check completed.
--- NOTE | 2019-09-24 23:55 | NUR ---
P-ISOLATIVE I-ENCOURAGE VENTILATION OF FEELINGS & PROVIDE EMOTIONAL SUPPORT. ASSESS SUICIDAL FEELINGS, ADMINISTER MEDICATIONS, MONITOR SLEEP R-PT IS ALERT & ORIENTED X 3. ISOLATIVE TO SELF. DENIES SUICIDAL FEELINGS & STATED, "I WAS JUST OVERWHELMED WITH LIFE." VERY PLEASANT & STATED THAT HER MOOD IS GOOD. AMBULATORY & INDEPENDENT. COMPLIANT WITH MEDICATIONS. P-CONTINUE TO MONITOR & PROVIDE PHYSICAL ASSISTANCE & EMOTIONAL SUPPORT NEEDED.
[2019-09-25 07:44] VITALS: BP 129/59
--- NOTE | 2019-09-25 08:15 | NUR ---
Treatment Plan meeting with Dr. Workman, RN, AT, SW and Pbx Teacher. Plan for discharge Saturday. Pt. will return home at discharge.
--- NOTE | 2019-09-25 08:45 | NUR ---
DR. TAMEZ ON UNIT TO ASSESS PT, UPDATE PROVIDED.
--- NOTE | 2019-09-25 10:32 | NUR ---
Group discussion this AM about support systems. Patients led conversation to pets as support. Pt shared about her two cats that she had until recently. She also spoke of her neighbors as support and the neighbor's dog making her feel better when the dog is around her. Pt also shared about her home health services. Pt was pleasant and per self-report, feeling much better. Pt denies suicidal ideations. She stated that she feels ready for discharge on Saturday and "wants to try living again." During discussion pt mentioned that she feels that she has too many hours of home care. Pt agreeable to this typewriter ribbon winder contacting her therapeutic case manager to discuss pt's thoughts about her hours of care.
--- NOTE | 2019-09-25 10:38 | NUR ---
Spoke to pt's [facility] rehabilitation case coordinator Ashlie Master ([phone]). Discussed pt's concern that she has too many hours of home health services. Ashlie stated that pt had made a previous comment about this. Ashlie plans on contacting the agency providing the services and also will talk with the pt when she returns home to find and agreeable amount of hours for home care services. Informed pt of this conversation.
--- NOTE | 2019-09-25 11:40 | NUR ---
AM GROUP PT ATTENDED MORNING GROUP THERAPY AND PARTICIPATED BY COLORING AND SOCIALIZING WITH NURSING STUDENTS. PT EXPRESSED NO SUICIDAL IDEATIONS WHILE IN GROUP
--- NOTE | 2019-09-25 14:35 | NUR ---
P: PT MOOD IS MILDLY DEPRESSED. PT ISOLTIVE TO SELF INTERMITTENTLY THROUGHOUT THE DAY. I: PROVIDE EMOTIONAL SUPPORT AND 1:1 FOR PT TO VOICE FEELINGS, ENCOURAGE GROUP PARTICIPATION AND SOCIALIZATION, ENCOURAGE MED COMPLIANCE AND PROVIDE MED EDUCATION R: PT ALERT TO PERSON, PLACE, TIME AND SITUATION. PT MED COMPLIANT WITHOUT DIFFICULTY. PT CALM, INTERACTIVE WITH STAFF AND PEERS. PT PARTICIPATING IN GROUPS/ACTIVITIES. PT AMBULATORY THROUGHOUT UNIT, GAIT STEADY. PT CONTINENT OF BOWEL AND BLADDER. PT DENIES ANY SUICIDAL THOUGHTS, VERBALLY CONTRACTS FOR SAFETY IF SUCH THOUGHTS ARISE. NO HALLUCINATIONS OR DELUSIONS NOTED. P: MONITOR PT BEHAVIORS ON Q15 MIN SAFETY CHECKS, ENCOURAGE MED COMPLIANCE AND PROVIDE MED EDUCATION, PROVIDE EMOTIONAL SUPPORT AND 1:1 FOR PT TO VOICE FEELINGS, ENCOURAGE GROUP PARTICIPATION AND SOCIALIZATION
--- NOTE | 2019-09-25 15:37 | NUR ---
PM GROUP/MOVIE PT ATTENDED AFTERNOON GROUP THERAPY FOR A SHORT TIME BEFORE GOING TO HER ROOM TO NAP. PT RETURNED AT THE END OF GROUP.
[2019-09-25 20:00] VITALS: BP 125/60
--- NOTE | 2019-09-25 21:14 | NUR ---
24 HR chart check completed.
--- NOTE | 2019-09-25 22:56 | NUR ---
P-ISOLATIVE I-ENCOURAGE VENTILATION OF FEELINGS & PROVIDE EMOTIONAL SUPPORT. ASSESS SUICIDAL FEELINGS, ADMINISTER MEDICATIONS, MONITOR SLEEP R-PT IS ALERT & ORIENTED X 3. REMAINS ISOLATIVE TO SELF BUT CAME TO THE DINING ROOM FOR SNACK. MOOD MILDLY DEPRESSED. DENIES SUICIDAL FEELINGS. PLEASANT INTERACTIONS WITH STAFF. AMBULATORY & INDEPENDENT. COMPLIANT WITH MEDICATIONS. P-CONTINUE TO MONITOR & PROVIDE PHYSICAL ASSISTANCE & EMOTIONAL SUPPORT NEEDED.
--- NOTE | 2019-09-26 06:20 | NUR ---
PT HAS SLEPT PAST 2144
[2019-09-26 07:59] VITALS: BP 139/76
--- NOTE | 2019-09-26 10:22 | NUR ---
DR. SIMMS ON UNIT TO ASSESS PT, UPDATE PROVIDED.
--- NOTE | 2019-09-26 10:42 | NUR ---
P: PT ISOLATIVE TO ROOM AT TIMES THIS MORNING, MOOD IS DEPRESSED. I: PROVIDE EMOTIONAL SUPPORT AND 1:1 FOR PT TO VOICE FEELINGS, ENCOURAGE MED COMPLIANCE AND PROVIDE MED EDUCATION, ENCOURAGE GROUP PARTICIPATION AND SOCIALIZATION R: PT ALERT TO PERSON, PLACE, TIME AND SITUATION. PT MED COMPLIANT WITHOUT DIFFICULTY. PT RETUNRED TO ROOM AFTER BREAKFAST AND REMAINED IN ROOM UNTIL AM GROUP. PT PARTICIPATED IN GROUP WITH LITTLE ENOCOURAGEMENT. NO HALLUCINATIONS OR DELUSIONS NOTED. PT DENIES ANY SUICIDAL THOUGHTS, VERBALLY CONTRACTS FOR SAFETY IF SUCH THOUGHTS ARISE. PT AMBULATORY THROUGHOUT UNIT, GAIT STEADY. PT CONTINENT OF BOWEL AND BLADDER. PT REMAINS ON 3L O2 VIA NC. P: MONITOR PT BEHAVIORS ON Q15 MIN SAFETY CHECKS, ENCOURAGE MED COMPLIANCE AND PROVIDE MED EDUCATION, PROVIDE EMOTIONAL SUPPORT AND 1:1 FOR PT TO VOICE FEELINGS, ENCOURAGE GROUP PARTICIAPTION AND SOCIALIZATION.
--- NOTE | 2019-09-26 12:15 | NUR ---
AM GROUP PT ATTENDED AND PARTICIPATED IN GROUP. PT PLEASNAT AND ON TASK WITH NO S.I. EXPRESSED AT THIS TIME. PT WILL CONTINUE TO ATTEND AND PARTICIPATE IN FUTURE GROUP SESSIONS.
--- NOTE | 2019-09-26 15:38 | NUR ---
PM GROUP/LEISURE SKILLS PT ATTENDED AND PARTICIPATED IN GROUP WITH NO S.I. EXPRESSED AT THIS TIME. PT WILL CONTINUE TO ATTEND AND PARTICIPATE IN FUTRUE GROUP SESSIONS TO BEST OF PT ABILITY.
[2019-09-26 20:00] VITALS: BP 115/52
--- NOTE | 2019-09-26 20:51 | NUR ---
24 HR chart check completed.
--- NOTE | 2019-09-26 21:45 | NUR ---
P-ISOLATIVE I-ENCOURAGE VENTILATION OF FEELINGS & PROVIDE EMOTIONAL SUPPORT. ASSESS SUICIDAL FEELINGS, ADMINISTER MEDICATIONS, MONITOR SLEEP R-PT IS ALERT & ORIENTED X 3. REMAINS ISOLATIVE TO SELF & SPENDS TIME IN HER ROOM. CAME TO THE DINING ROOM FOR SNACK. MOOD MILDLY DEPRESSED UPON OBSERVATION BUT PRESENTS VERY PLEASANT WHEN SPEAKING TO STAFF. DENIES SUICIDAL FEELINGS. AMBULATORY & INDEPENDENT. COMPLIANT WITH MEDICATIONS. CONTINUES TO USE O2 @ 3L/MIN. P-CONTINUE TO MONITOR & PROVIDE PHYSICAL ASSISTANCE & EMOTIONAL SUPPORT NEEDED.
--- NOTE | 2019-09-27 05:23 | NUR ---
PT SLEPT PAST 44
[2019-09-27 07:46] VITALS: BP 133/55
--- NOTE | 2019-09-27 12:43 | NUR ---
AM GROUP/AFFIRMATIONS/MUSIC PT ATTENDED AND PARTICIPATED IN ALL ACTIVITY'S. PT PLEASANT AND ON TASK WITH NO S.I. EXPRESSED.
[2019-09-27 20:00] VITALS: BP 132/58
--- NOTE | 2019-09-27 23:24 | NUR ---
24 HR chart check completed.
--- NOTE | 2019-09-27 23:51 | NUR ---
P-ISOLATIVE I-ENCOURAGE VENTILATION OF FEELINGS & PROVIDE EMOTIONAL SUPPORT. ASSESS SUICIDAL FEELINGS, ADMINISTER MEDICATIONS, MONITOR SLEEP R-PT IS ALERT & ORIENTED X 3. REMAINS ISOLATIVE TO SELF & SPENDS TIME IN HER ROOM BUT HAS ALSO BEEN WEARING TOILET PAPER IN HER EARS BECAUSE OF "ALL THE NOISE ON THE UNIT. I NEED EARPLUGS." HAS BEEN NOTED TO BE OUT OF HER ROOM MORE. ATE SNACK. MOOD STABLE & VERY PLEASANT WHEN SPEAKING TO STAFF. DENIES SUICIDAL FEELINGS. AMBULATORY & INDEPENDENT. COMPLIANT WITH MEDICATIONS. CONTINUES TO USE O2 @ 3L/MIN VIA NC. P-CONTINUE TO MONITOR & PROVIDE PHYSICAL ASSISTANCE & EMOTIONAL SUPPORT NEEDED.
--- NOTE | 2019-09-28 05:03 | NUR ---
PT HAS SLEPT PAST 2144 WITH A BRIEF AWAKENING TO GO TO THE BATHROOM.
[2019-09-28 08:04] VITALS: BP 133/55
--- NOTE | 2019-09-28 08:05 | NUR ---
Faxed continued stay review clinical to [facility]. Awaiting response.
--- NOTE | 2019-09-28 08:31 | NUR ---
SPOKE WITH DR. ALTAMIRANO RE: PT DISCHARGE FOR 11AM AND MEDICAL MEDS NEEDING COMPLETED. NO FURTHER ORDERS AT THIS TIME.
--- NOTE | 2019-09-28 08:50 | NUR ---
Treatment Plan meeting with Dr. Workman, RN, AT, SW and Manager Cardiology. Plan for discharge today. Pt. will return home with follow up care arranged.
[2019-09-28] MEDS ORDERED: DULOXETINE HCL60 MG PO (09:00)
[2019-09-28] MEDS ORDERED: REXULTI2 MG PO (09:00)
[2019-09-28] MEDS ORDERED: PERPHENAZINE4 M1 PO (09:00)
[2019-09-28] MEDS ORDERED: REXULTI1 MG PO (09:00)
[2019-09-28] MEDS ORDERED: DULOXETINE HCL30 MG PO (09:00)
[2019-09-28] MEDS ORDERED: ROZEREM8 MG PO (09:00)
--- NOTE | 2019-09-28 09:15 | NUR ---
ON UNIT TO ASSESS PT, UPDATE PROVIDED.
--- NOTE | 2019-09-28 09:55 | NUR ---
PT ALERT TO PERSON, PLACE, TIME AND SITUATION. PT MED COMPLIANT WITHOUT DIFFIUCLTY, MED EDUCATION PROVIDED. PT CALM, MOOD IS STABLE. PT REMAINS ISOLATIVE TO ROOM AT TIMES THROUGHOUT THE DAY D/T NOISE IN THE [place]LE[place]. PT PARTICIPATES IN GROUP/ACTIVITIES WITHOUT ENCOURAGEMENT. PT GOAL DIRECTED TOWARDS DISCHARGE. NO HALLUCINATIONS OR DELUSIONS NOTED. PT DENIES ANY SUICIDAL THOUGHTS, PT VERBALLY CONTRACTS FOR SAFETY IF SUCH THOUGHTS ARISE. PT VOICES THAT IF SHE HAS THESE THOUGHTS AT HOME SHE STATES "I WILL CALL SOMEONE FOR HELP." PT AMBULATORY THROUGHOUT UNIT, GAIT STEADY. PT CONTINENT OF BOWEL AND BLADDER. PT REMAINS ON 3L O2 VIA NC. PLAN IS TO MONITOR PT BEHAVIORS ON Q15 MIN SAFETY CHECKS, ENCOURAGE MED COMPLIANCE AND PROVIDE MED EDUCATION AND PREPARE PT FOR DISCHARGE TODAY.
--- NOTE | 2019-09-28 10:43 | NUR ---
Met with pt individually this AM in her room. Pt voiced that she feels ready for her discharge and ready "to conquer the world." Pt shared about living at [facility]. During this conversation, pt spoke of there no longer being any organized social activites there as there was in the past. Discussed this further. Pt stated that she really looked forward to the activites and that she knows several other residents that are disappointed because there now is nothing. Encourage pt to speak with the apartment management about this and for pt to possibly work toward organizing some social activities there. Pt spoke postively of this and stated that she would look into it when she returns home. Pt also spoke of her friend Chris. She shared about the development of their relationship. Discussed a safety plan should pt find herself feeling suicidal again. Pt stated that she would call the [facility] office if it were during office hours for help. She further stated that she would call Chris for help at all other hours. Patient confirmed that she would call [phone] if she was unable to reach anyone else. Pt denies suicidal ideations at this time. She is future-oriented as she speaks of plans to try to get social acitivities again at [facility] and the continued growth of her relationship with Chris.
--- NOTE | 2019-09-28 11:09 | NUR ---
Patient is discharging to her apartment at [facility] where she resides independently. Follow-up was scheduled at [facility]. While at [facility], pt's mood improved. Pt denies suicidal ideations and is voicing hope for her future. Patient participated in programming and was social with peers and staff.
--- NOTE | 2019-09-28 11:37 | NUR ---
AM GROUP PT ATTENDED MORNING GROUP THERAPY BUT CHOSE NOT TO PARTICIPATE DUE TO GETTING READY TO BE DISCHARGED AFTER LUNCH.
--- NOTE | 2019-09-28 12:26 | NUR ---
PT DISCHARGED TO HOME VIA PRIVATE CAR. PT BELONGINGS AND DISCHARGE PACKET SENT WITH PT. PT ESCORTED OFF THE UNIT VIA WHEELCHAIR AND 1 STAFF MEMBER.
--- NOTE | 2019-09-28 12:52 | NUR ---
IP 2 additional days approved per [facility]. NRD 09/28. Ref # [id number]
== END 2019-09-28 12:26 | disposition home or self-care (01) | DRG 885 ==
LOC: 3N 15:08
PROVIDERS: ADMIT Psychiatry & Neurology Psychiatry
DX: F25.9 Schizoaffective disorder, unspecified (principal); F33.2 Major depressive disorder, recurrent severe without psychotic features; F41.9 Anxiety disorder, unspecified; J44.9 Chronic obstructive pulmonary disease, unspecified; I10 Essential (primary) hypertension; E78.5 Hyperlipidemia, unspecified; K21.9 Gastro-esophageal reflux disease without esophagitis; F17.210 Nicotine dependence, cigarettes, uncomplicated; R73.03 Prediabetes; I25.10 Atherosclerotic heart disease of native coronary artery without angina pectoris; N32.81 Overactive bladder; T50.992D Poisoning by other drugs, medicaments and biological substances, intentional self-harm, subsequent encounter; I25.2 Old myocardial infarction; Z99.81 Dependence on supplemental oxygen; Z71.6 Tobacco abuse counseling; Z87.440 Personal history of urinary (tract) infections; Z95.5 Presence of coronary angioplasty implant and graft; Z82.49 Family history of ischemic heart disease and other diseases of the circulatory system; Z88.8 Allergy status to other drugs, medicaments and biological substances; Z88.6 Allergy status to analgesic agent; Z88.2 Allergy status to sulfonamides; Z79.82 Long term (current) use of aspirin; Z79.899 Other long term (current) drug therapy